=== PATIENT | male | born 1970 | race Caucasian/White ===

== ENCOUNTER 2018-01-15 19:09 | Emergency (ER) | payer OTHER ==
[2018-01-15 19:18] VITALS: BP 177/101
--- NOTE | 2018-01-15 19:23 | UC ---
Respiratory Complaint HPI - HPI Summary HPI Summary: 47 yo male presents with dry cough and body aches. He tells me that 10 days ago he developed a sore throat and went to [address] [place] [address] on 01/06 and was dx'd with strep. He was placed on Augmentin for 10 days and is on day 8 of that. He reports significant improvement of his sore throat, but over the last 2-3 days has developed a dry cough and body aches. He and his are concerned that he has the flu and are requesting a flu swab. He has been taking mucinex in addition to his augmentin. Denies fever, chills, SOB, chest pain, abdominal pain , n/v, or rash. - History of Current Complaint Chief Complaint: UCRespiratory Stated Complaint: COUGH,BODY ACHES Time Seen by Provider: 01/15/18 19:22 Hx Obtained From: Patient Onset/Duration: Gradual Onset Severity Initially: Moderate Severity Currently: Moderate Pain Intensity: 6 Pain Scale Used: 0-10 Numeric - Allergies/Home Medications Allergies/Adverse Reactions: Allergies Allergy/AdvReac Type Severity Reaction Status Date / Time azithromycin Allergy Nausea And Verified 01/15/18 19:19 Vomiting Home Medications: Home Medications Antibiotic ? Name 1 tab PO BID 01/15/18 [History] PMH/Surg Hx/FS Hx/Imm Hx - Additional Past Medical History Additional PMH: None Previously Healthy: Yes - Surgical History Surgical History: None - Family History Known Family History: Positive: None - Social History Occupation: Employed Full-time Lives: With Family Alcohol Use: Occasionally Substance Use Type: None Smoking Status (MU): Never Smoked Tobacco Review of Systems Constitutional: Other - Body aches Skin: Negative Eyes: Negative ENT: Negative Respiratory: Cough Cardiovascular: Negative Gastrointestinal: Negative Musculoskeletal: Negative Neurological: Negative Psychological: Negative All Other Systems Reviewed And Are Negative: Yes Physical Exam - Summary Physical Exam Summary: GENERAL: NAD. WDWN. No pain distress. SKIN: No rashes, sores, lesions, or open wounds. HEENT: Head: AT/NC Eyes: EOM intact. Conjunctiva clear without inflammation or discharge. Ears: Hearing grossly normal. TMs intact, no bulging, erythema, or edema. Nose: Nasal mucosa pink and moist. NTTP maxillary and frontal sinus. Throat: Posterior oropharynx without exudates, erythema, or tonsillar enlargement. Uvula midline. NECK: Supple. Nontender. No lymphadenopathy. CHEST: CTAB. No wheezing. No accessory muscle use. Breathing comfortably and in no distress. CV: RRR. Without m/r/g. Pulses intact. Brisk cap refill. NEURO: Alert. CN II-XII grossly intact. PSYCH: Age appropriate behavior. Triage Information Reviewed: Yes Vital Signs: Initial Vital Signs Temp 98.6 F 01/15/18 19:15 Pulse 70 01/15/18 19:15 Resp 18 01/15/18 19:15 BP 177/101 01/15/18 19:15 Pulse Ox 98 01/15/18 19:15 Laboratory Tests 01/15/18 19:36 Influenza A (Rapid) Negative Influenza B (Rapid) Negative Vital Signs Reviewed: Yes UC Diagnostic Evaluation - Laboratory O2 Sat by Pulse Oximetry: 98 Respiratory Course/Dx - Course Course Of Treatment: Repeat BP 158/92. POC flu negative. CXR: IMPRESSION: NO EVIDENCE FOR ACTIVE CARDIOPULMONARY DISEASE. Suspect viral illness. Advised to take tylenol/ibuprofen for fevers or discomfort. Rest and drink clear fluids. Complete his course of augmentin - Differential Dx/Diagnosis Provider Diagnoses: Viral syndrome Discharge - Sign-Out/Discharge Documenting (check all that apply): Patient Departure - Discharge Plan Condition: Stable Disposition: HOME Prescriptions: Benzonatate CAP* [Tessalon 100 MG CAP*] 100 mg PO TID PRN #15 cap PRN Reason: Cough predniSONE TAB* [Deltasone 20 MG TAB*] 40 mg PO DAILY #9 tab Patient Education Materials: Viral Syndrome (ED) Referrals: Wagner Lynch NP [Primary Care Provider] - Additional Instructions: If you develop a fever, shortness of breath, chest pain, new or worsening symptoms - please call your PCP or go to the ED. Your blood pressure was high at todays visit. Please see your primary provider within 4 weeks for recheck and re-evaluation. Per institutional requirements, I have reviewed the chart, however, I was not consulted specifically or made aware of this patient by the above midlevel provider. I did not personally evaluate, interact with , or disposition this patient. - Billing Disposition and Condition Condition: STABLE Disposition: Home
--- NOTE | 2018-01-15 19:55 | RAD ---
INDICATION: Cough and fever. COMPARISON: There are no prior studies available for comparison. TECHNIQUE: Dual-energy PA and lateral views of the chest were obtained. FINDINGS: The heart is within normal limits in size. Mediastinal and hilar contours appear within normal limits. The lungs are clear. No pleural effusion is present. IMPRESSION: NO EVIDENCE FOR ACTIVE CARDIOPULMONARY DISEASE.
== END 2018-01-15 20:15 | disposition home or self-care (01) ==
LOC: UCEAST 19:09
DX: B34.9 Viral infection, unspecified (principal); Z88.1 Allergy status to other antibiotic agents
CPT/HCPCS: 71046; 99202; G0463

== ENCOUNTER 2018-06-16 11:04 | Emergency (ER) | payer OTHER ==
--- NOTE | 2018-06-16 11:20 | UC ---
Respiratory Complaint HPI - HPI Summary HPI Summary: 47 y/o male presents to the urgent care c/o nasal congestion w/ green nasal discharge, sinus pain, +PND and a dry cough for the past 9 days. Pt reports his has similar symptoms. Ordonez and sinus pain is 6/10. He has been taking OTC medications w/o any improvement. Pt stated mild dry cough, but a lot of green PND. Pt denies visual disturbances, dizziness, SOB, chest pain, abdominal pain, N/V/D - History of Current Complaint Chief Complaint: UCRespiratory Stated Complaint: SINUS ISSUE Time Seen by Provider: 06/16/18 11:19 Hx Obtained From: Patient Onset/Duration: Gradual Onset, Lasting Days - 9 days, Still Present, Worse Since - 2 days Timing: Constant Severity Initially: Mild Severity Currently: Moderate Pain Intensity: 6 Pain Scale Used: 0-10 Numeric Character: Cough: Nonproductive Aggravating Factors: Recumbent Position Alleviating Factors: OTC Meds Associated Signs And Symptoms: Positive: URI, Nasal Congestion, Sinus Discomfort. Negative: Fever - at the beining of symptoms, Wheezing - Risk Factors Pulmonary Embolism Risk Factors: Negative Cardiac Risk Factors: Negative Pseudomonas Risk Factors: Negative Tuberculosis Risk Factors: Negative - Allergies/Home Medications Allergies/Adverse Reactions: Allergies Allergy/AdvReac Type Severity Reaction Status Date / Time azithromycin Allergy Nausea And Verified 06/16/18 11:15 Vomiting PMH/Surg Hx/FS Hx/Imm Hx Previously Healthy: Yes - Pt denies PMHX - Surgical History Surgical History: None - Family History Known Family History: Positive: Cardiac Disease, Hypertension - Social History Occupation: Employed Full-time Lives: With Family Alcohol Use: Occasionally Substance Use Type: None Smoking Status (MU): Never Smoked Tobacco Review of Systems All Other Systems Reviewed And Are Negative: Yes Constitutional: Positive: Negative Skin: Positive: Negative Eyes: Positive: Negative ENT: Positive: Ear Ache - B/L ear pressure, Nasal Discharge - green, Sinus Congestion, Sinus Pain/Tenderness, Other - PND + Respiratory: Positive: Cough - dry Cardiovascular: Positive: Negative Gastrointestinal: Positive: Negative Genitourinary: Positive: Negative Motor: Positive: Negative Neurovascular: Positive: Negative Musculoskeletal: Positive: Negative Neurological: Positive: Headache Psychological: Positive: Negative Is Patient Immunocompromised?: No Physical Exam - Summary Physical Exam Summary: Vitals: reviewed General: Well developed, well-nourished male patient with NAD. Head and face: Normocephalic and atraumatic, Positive tenderness over the frontal and maxillary sinuses.. Eyes: PERRLA, EOMI x 2. Normal conjunctiva. No eye discharge. fundus clear, no photophobia ENT: Ears and TM with normal limits. Nose: edematous and erythematous nasal mucosa with with yellowish discharge and erythematous mucosa. Pharynx with erythema, no exudate. green PND Neck: Supple, no JVD, no carotid bruits and no lymphadenopathy. Lungs: clear, no rales, no rhonchi, no wheezes. CVS: RRR, S1 and S2 present no murmurs or gallops appreciated. Abdomen: soft nontender with positive bowel sounds. Extremities: no edema noted. Neuro: WNL. Skin: warm and dry Triage Information Reviewed: Yes Vital Signs: Initial Vital Signs Temp 99.4 F 06/16/18 11:12 Pulse 87 06/16/18 11:12 Resp 17 06/16/18 11:12 BP 167/109 06/16/18 11:12 Pulse Ox 98 06/16/18 11:12 Diagnostic Evaluation - Laboratory O2 Sat by Pulse Oximetry: 98 Respiratory Course/Dx - Course Course Of Treatment: 47 y/o male presents to the urgent care c/o nasal congestion w/ green nasal discharge, sinus pain, +PND and a dry cough for the past 9 days. Pt reports his has similar symptoms. Ordonez and sinus pain is 6/ 10. He has been taking OTC medications w/o any improvement. Pt stated mild dry cough, but a lot of green PND. Pt denies visual disturbances, dizziness, SOB, chest pain, abdominal pain, N/V/D. Hx obtained. Pt w/ acute bacterial sinusitis on examination. Pt is hemodynamically stable. Manual BP retaking 152/102. Pt educated of HTN and advised to decrease salt in his diet and monitor BP and f/u w/ his PCP in 3 days for further management. Pt Rx Augmentin PO and Flonase nasal spray for his sinusitis. D/C instructions explained. Pt understood and agreed w/ plan of care. Pt left clinic ambulating and hemodynamically stable. - Differential Dx/Diagnosis Differential Diagnosis/HQI/PQRI: Bronchitis, Influenza, Laryngitis, Lower Resp Infection, Sinusitis Provider Diagnosis: Acute bacterial sinusitis, Elevated BP without diagnosis of hypertension Discharge - Sign-Out/Discharge Documenting (check all that apply): Patient Departure - D/c home All imaging exams completed and their final reports reviewed: No Studies - Discharge Plan Condition: Stable Disposition: HOME Prescriptions: Amoxicillin/Clavulanate TAB* [Augmentin TAB 875*] 875 mg PO BID #20 tab Fluticasone NASAL SPRAY 50MCG* [Flonase NASAL SPRAY 50MCG*] 2 spray BOTH NARES DAILY #1 btl Patient Education Materials: Sinusitis (ED), Low-Sodium Diet (ED) Forms: *Work Release Referrals: Wagner Lynch NP [Primary Care Provider] - 3 Days Additional Instructions: 1- Please increase fluid intake and rest. take full course of antibiotic to avoid resistance. Take yogurts w/ Probiotics or Culturelle to protect your GI system 2-Use Flonase as directed to help drain fluid. Also buy saline drops to clear sinuses 3-Take Ibuprofen/Tylenol PO q6-8hrs after meals to alleviate headache 4-Return to the clinic or PCP in 3 days if symptoms do not improve for further management and treatment 5- Your BP is very elevated today. please decrease salt in your diet, monitor BP and if it continues to be elevated please f/u with your PCP 3 days for further management. However if you develop visual disturbances, dizziness, SOB, chest pain, N/V please go immediately to the ER for further management - Billing Disposition and Condition Condition: STABLE Disposition: Home
[2018-06-16 11:45] VITALS: BP 152/102
== END 2018-06-16 11:55 | disposition home or self-care (01) ==
LOC: UCEAST 11:04
DX: J01.90 Acute sinusitis, unspecified (principal); B96.89 Other specified bacterial agents as the cause of diseases classified elsewhere; R03.0 Elevated blood-pressure reading, without diagnosis of hypertension; Z88.1 Allergy status to other antibiotic agents
CPT/HCPCS: 99212; G0463

== ENCOUNTER 2018-08-29 17:33 | Emergency (ER) | payer OTHER ==
--- NOTE | 2018-08-29 17:48 | UC ---
General HPI - HPI Summary HPI Summary: 47 yo male presents with generalized fatigue. He tells me that he was seen at the about 3 months ago and told his BP was elevated and to f/u with his PCP. He tried to schedule an appointment, but had some insurance issues and was never able to see them. He tells me that he tried to eat better and drink more water and he felt better overall. 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 He reports experiencing fatigue and has a general lack of energy over this time period. Today he was at [facility] and checked his BP and noted it to still be elevated (160s/110). He called his PCP and they recommended he come to urgent care. He does not smoke. Drinks alcohol occasionally. Denies PMHx. Family hx positive for father [place] last year. He denies fever, SOB, chest pain ( although has had intermittent chest "discomfort" over the last 3 months), abdominal pain, n/v/d/c, dysuria, increased thirst or urination. He also tells me that about 2 weeks ago in the process of moving - he jammed his right pinky finger. Is still mildly swollen and bruised today. He feels it is deformed. Concerned about a fracture here. He has not seen a primary doctor or had any labwork in over 2-3 years - History of Current Complaint Chief Complaint: UCCardiac Stated Complaint: FEVER Time Seen by Provider: 08/29/18 17:48 Hx Obtained From: Patient Onset/Duration: Gradual Onset Current Severity: None Pain Intensity: 0 - Allergy/Home Medications Allergies/Adverse Reactions: Allergies Allergy/AdvReac Type Severity Reaction Status Date / Time azithromycin Allergy Nausea And Verified 08/29/18 17:44 Vomiting PMH/Surg Hx/FS Hx/Imm Hx - Additional Past Medical History Additional PMH: None - Surgical History Surgical History: Yes Surgery Procedure, Year, and Place: left knee - Family History Known Family History: Positive: Cardiac Disease, Hypertension - Social History Occupation: Employed Full-time Lives: With Family Alcohol Use: Rare Substance Use Type: None Smoking Status (MU): Never Smoked Tobacco Review of Systems All Other Systems Reviewed And Are Negative: Yes Constitutional: Positive: Fatigue Skin: Positive: Negative Eyes: Positive: Negative ENT: Positive: Negative Respiratory: Positive: Negative Cardiovascular: Positive: Negative Gastrointestinal: Positive: Negative Genitourinary: Positive: Negative Neurovascular: Positive: Negative Neurological: Positive: Negative Psychological: Positive: Negative Physical Exam - Summary Physical Exam Summary: GENERAL: NAD. WDWN. No pain distress. SKIN: No rashes, sores, lesions, or open wounds. HEENT: Head: AT/NC Eyes: EOM intact. Conjunctiva clear without inflammation or discharge. Ears: Hearing grossly normal. TMs intact, no bulging, erythema, or edema. Nose: Nasal mucosa pink and moist. NTTP maxillary and frontal sinus. Throat: Posterior oropharynx without exudates, erythema, or tonsillar enlargement. Uvula midline. NECK: Supple. Nontender. No lymphadenopathy. CHEST: CTAB. No r/r/w. No accessory muscle use. Breathing comfortably and in no distress. CV: RRR. Without m/r/g. Pulses intact. Cap refill <2seconds ABDOMEN: Soft. NTTP. No distention or guarding. No CVA tenderness. Bowel sounds present MSK: Right hand: 5th digit with mild ecchymosis and edema at MCP and proximal phalanx. FROM without pain. When fully extended appears slightly ulnar deviated. NEURO: Alert. PSYCH: Age appropriate behavior. Triage Information Reviewed: Yes Vital Signs: Initial Vital Signs Temp 98.3 F 08/29/18 17:38 Pulse 72 08/29/18 17:38 Resp 18 08/29/18 17:38 BP 163/103 08/29/18 17:38 Pulse Ox 96 08/29/18 17:38 Laboratory Tests 08/29/18 08/29/18 08/29/18 17:57 18:10 18:22 POC Glucose (mg/dL) 179 H POC Urine Color Yellow POC Urine Clarity Clear POC Urine pH 5.5 POC Ur Specif [place] >= 1.030 POC Urine Protein 2+ A POC Ur Glucose (UA) Negative POC Urine Ketones Negative POC Urine Blood Trace-intact A POC Urine Nitrite Negative POC Urine Bilirubin Negative POC Urine Urobilinogen 0.2 POC U Leukocyte Esteras Negative Influenza A (Rapid) Negative Influenza B (Rapid) Negative Vital Signs Reviewed: Yes Course/Dx - Course Course Of Treatment: EKG 73bpm NSR with LVH. No ST changes as read by Dr. Medeiros. POC glucose 179. POC flu negative. UA negative. XR hand: No radiologist reading after 1800, therefore wet read by myself is negative for acute fracture. I do not see evidence of a recent fracture or signs of recent fracture healing. I suspect this is a contusion and advised to continue monitoring the area and to apply ice. Given his symptoms and findings today, there is a concern that he may be diabetic - however he did eat just prior to arrival and his glucose was tested about 1.5 hours after this meal. His BP continues to be high today - he has not had multiple documented visits of elevated BP. Given his elevated BS and his HTN , will start him with Lisinopril 10mg daily today and draw for CBC, CMP, TSH, and A1C. Discussed the above with pt and strongly advised that he f/u with his PCP within 1 week for BP check and to go over lab results for further evaluation and treatment. If he develops SOB, chest pain, dizziness, headache, weakness, or lightheadedness to go to the ED. He voiced understanding and is in agreement with the plan. - Diagnoses Provider Diagnosis: HTN (hypertension), Fatigue, Elevated blood sugar, Contusion of right hand Discharge - Sign-Out/Discharge Documenting (check all that apply): Patient Departure All imaging exams completed and their final reports reviewed: Yes - Discharge Plan Condition: Stable Disposition: HOME Prescriptions: Lisinopril TAB* [Prinivil TAB 10 MG*] 10 mg PO BEDTIME #30 tab Patient Education Materials: Hypertension (ED), Nondiabetic Hyperglycemia (ED) Referrals: Wagner Lynch NP [Primary Care Provider] - As Soon As Possible Additional Instructions: If you develop a fever, shortness of breath, chest pain, new or worsening symptoms - please call your PCP or go to the ED. 1) Please start taking the lisinopril once a day at bedtime 2) Please schedule an appointment with your Primary doctor as soon as possible ( preferably within 1 week) for a recheck and to go over your lab results - Billing Disposition and Condition Condition: STABLE Disposition: Home
[2018-08-29 17:53] VITALS: BP 162/102
[2018-08-29 18:09] LABS: Influenza A Molecular NEGATIVE (Negative); Influenza B Molecular NEGATIVE (Negative)
[2018-08-30 10:37] LABS: ABS Basophils 0.1 10^3/ul (0-0.2); ABS Eosinophils 0.2 10^3/ul (0-0.6); ABS Lymphocytes 1.4 10^3/ul (1.0-4.8); ABS Monocytes 0.4 10^3/ul (0-0.8); ABS Neutrophils 3.9 10^3/ul (1.5-7.7); ABS Nucleated RBC 0 10^3/ul; Eosinophil % 3.9 %; Hematocrit 44 % (36-46); Hemoglobin 14.9 g/dL (14.0-18.0); Lymphocyte % 23.8 %; Mean Corpuscular HGB Conc 34 g/dL (31-36); Mean Corpuscular Hemoglobin 30 pg (27-31); Mean Corpuscular Volume 89 fL (80-94); Mean Platelet Volume 10.6 fL (7.4-10.4); Nucleated Red Blood Cells % 0; Platelet Count 183 10^3/uL (150-450); Red Blood Count 4.96 10^6 /uL (4.18-5.48); Red Cell Distribution Width 14 % (10.5-15)
[2018-08-30 10:40] LABS: Albumin 4.7 g/dL (3.2-5.2); Calcium 9.6 mg/dL (8.6-10.3); Potassium 4.6 mmol/L (3.5-5.0); Total Bilirubin 0.5 mg/dL (0.2-1.0)
[2018-08-30 10:46] LABS: BUN/Creatinine Ratio 13.5 (8-20); EGFR African American 93.4 (>60); EGFR Non-African American 77.2 (>60); Globulin 2.4 g/dL (2-4); Total Protein 7.1 g/dL (6.4-8.9)
[2018-08-30 11:29] LABS: TSH (Thyroid Stimulating Horm) 48.57 mcIU/mL (0.34-5.60)
--- NOTE | 2018-08-30 11:40 | UC ---
- Progress Note Progress Note: HGA1C elevated at 6.7 (Greater than 6.5% indicates diabetes) TSH 48.57 (hypothyroid) Labwork otherwise normal. The above findings are likely the cause of his fatigue and general feeling unwell. Attempted to call pt to discuss lab results and insure he has f/u with his PCP - no answer, but left a message to call us back. I called his PCP (W[facility]) and pt has not been seen there in over 5 years and therefore has been deactivated in their system and they are not taking new patients. Will give him a referral/number to the [facility] [phone] and number to Ann Herrera when he calls back. - Results/Orders Results/Orders: Laboratory Tests 08/29/18 08/29/18 08/29/18 17:57 18:10 18:22 WBC RBC Hgb Hct MCV MCH MCHC RDW Plt Count MPV Neut % (Auto) Lymph % (Auto) [place] % (Auto) Eos % (Auto) Baso % (Auto) Absolute Neuts (auto) Absolute Lymphs (auto) Absolute Monos (auto) Absolute Eos (auto) Absolute Basos (auto) Absolute Nucleated RBC Nucleated RBC % Sodium Potassium Chloride Carbon Dioxide Anion Gap BUN Creatinine Est GFR ( Amer) Est GFR (Non-Af Amer) BUN/Creatinine Ratio Glucose POC Glucose (mg/dL) 179 H Hemoglobin A1c Calcium Total Bilirubin AST ALT Alkaline Phosphatase Total Protein Albumin Globulin Albumin/Globulin Ratio TSH POC Urine Color Yellow POC Urine Clarity Clear POC Urine pH 5.5 POC Ur Specif [place] >= 1.030 POC Urine Protein 2+ A POC Ur Glucose (UA) Negative POC Urine Ketones Negative POC Urine Blood Trace-intact A POC Urine Nitrite Negative POC Urine Bilirubin Negative POC Urine Urobilinogen 0.2 POC U Leukocyte Esteras Negative Influenza A (Rapid) Negative Influenza B (Rapid) Negative 08/29/18 08/29/18 08/29/18 18:30 18:30 18:30 WBC 6.0 RBC 4.96 Hgb 14.9 Hct 44 MCV 89 MCH 30 MCHC 34 RDW 14 Plt Count 183 MPV 10.6 H Neut % (Auto) 65.0 Lymph % (Auto) 23.8 [place] % (Auto) 5.9 Eos % (Auto) 3.9 Baso % (Auto) 1.4 Absolute Neuts (auto) 3.9 Absolute Lymphs (auto) 1.4 Absolute Monos (auto) 0.4 Absolute Eos (auto) 0.2 Absolute Basos (auto) 0.1 Absolute Nucleated RBC 0 Nucleated RBC % 0 Sodium 137 Potassium 4.6 Chloride 101 Carbon Dioxide 27 Anion Gap 9 BUN 14 Creatinine 1.04 Est GFR ( Amer) 93.4 Est GFR (Non-Af Amer) 77.2 BUN/Creatinine Ratio 13.5 Glucose 206 H POC Glucose (mg/dL) Hemoglobin A1c 6.7 H Calcium 9.6 Total Bilirubin 0.50 AST 34 ALT 45 Alkaline Phosphatase 50 Total Protein 7.1 Albumin 4.7 Globulin 2.4 Albumin/Globulin Ratio 2.0 TSH 48.57 H POC Urine Color POC Urine Clarity POC Urine pH POC Ur Specif [place] POC Urine Protein POC Ur Glucose (UA) POC Urine Ketones POC Urine Blood POC Urine Nitrite POC Urine Bilirubin POC Urine Urobilinogen POC U Leukocyte Esteras Influenza A (Rapid) Influenza B (Rapid) Course/Dx - Diagnoses Provider Diagnoses: HTN (hypertension), Fatigue, Elevated blood sugar, Contusion of right hand Discharge - Sign-Out/Discharge Documenting (check all that apply): Post-Discharge Follow Up All imaging exams completed and their final reports reviewed: Yes - Discharge Plan Condition: Stable Disposition: HOME Prescriptions: Lisinopril TAB* [Prinivil TAB 10 MG*] 10 mg PO BEDTIME #30 tab Patient Education Materials: Hypertension (ED), Nondiabetic Hyperglycemia (ED) Referrals: Wagner Lynch NP [Primary Care Provider] - As Soon As Possible Additional Instructions: If you develop a fever, shortness of breath, chest pain, new or worsening symptoms - please call your PCP or go to the ED. 1) Please start taking the lisinopril once a day at bedtime 2) Please schedule an appointment with your Primary doctor as soon as possible ( preferably within 1 week) for a recheck and to go over your lab results - Billing Disposition and Condition Condition: STABLE Disposition: Home
== END 2018-08-29 18:50 | disposition home or self-care (01) ==
LOC: UCEAST 17:33
DX: S60.221A Contusion of right hand, initial encounter (principal); I10 Essential (primary) hypertension; R03.0 Elevated blood-pressure reading, without diagnosis of hypertension; Z88.1 Allergy status to other antibiotic agents; X58.XXXA Exposure to other specified factors, initial encounter; Y92.9 Unspecified place or not applicable
CPT/HCPCS: 36415; 80053; 81003; 83036; 84443; 85025; 99212; G0463

== ENCOUNTER 2019-02-16 07:48 | Emergency (ER) | payer OTHER ==
[2019-02-16 07:58] VITALS: BP 136/84
--- NOTE | 2019-02-16 08:14 | UC ---
Throat Pain/Nasal Azael HPI - HPI Summary HPI Summary: 48-year-old male comes in with a chief complaint of upper respiratory tract infection symptoms for one week. His rhinorrhea is yellow. Has been using over -the-counter medications with some relief. This morning he woke up with sore throat. Also the shower coughed up a lot of phlegm and sputum. Chloraseptic [place] did decrease the sore throat pain. No fevers or chills no history of asthma. He does feel fatigued. Not a smoker. He is a diabetic. - History of Current Complaint Chief Complaint: UCGeneralIllness Stated Complaint: CONGESTED Time Seen by Provider: 02/16/19 07:57 Pain Intensity: 0 - Allergies/Home Medications Allergies/Adverse Reactions: Allergies Allergy/AdvReac Type Severity Reaction Status Date / Time azithromycin AdvReac Nausea And Verified 02/16/19 07:58 Vomiting Home Medications: Home Medications Acetaminophen/Dextromethorphan [Daytime Cold & Cough Liquid] 02/16/19 [History] Dm/Acetaminophen/Doxylamine [Nighttime Cold and Flu Liquid] 02/16/19 [History] Levothyroxine TAB* [Synthroid 125 MCG TAB*] 1 dose PO DAILY 02/16/19 [History Confirmed 02/16/19] Pheniramine/P-Eph/Acetaminophn [Theraflu Flu & Sore Throat] 02/16/19 [History] Simvastatin TAB(NF) [Zocor 10 MG (NF)] 02/16/19 [History] metFORMIN* [Glucophage 1000 MG TAB *] 02/16/19 [History] PMH/Surg Hx/FS Hx/Imm Hx Previously Healthy: Yes Endocrine History: Diabetes, Hypothyroidism, Dyslipidemia Cardiovascular History: Hypertension - Surgical History Surgical History: Yes Surgery Procedure, Year, and Place: left knee - Family History Known Family History: Positive: None, Cardiac Disease, Hypertension - Social History Alcohol Use: Occasionally Substance Use Type: Marijuana Smoking Status (MU): Never Smoked Tobacco Review of Systems All Other Systems Reviewed And Are Negative: Yes Constitutional: Positive: Fatigue Skin: Positive: Negative Eyes: Positive: Negative ENT: Positive: Sore Throat, Ear Ache, Nasal Discharge, Sinus Congestion, Sinus Pain/Tenderness Respiratory: Positive: Negative Cardiovascular: Positive: Negative Gastrointestinal: Positive: Negative Motor: Positive: Negative Neurovascular: Positive: Negative Musculoskeletal: Positive: Negative Neurological: Positive: Negative Psychological: Positive: Negative Is Patient Immunocompromised?: No Physical Exam Triage Information Reviewed: Yes Appearance: Well-Appearing, No Pain Distress, Well-Nourished Vital Signs: Initial Vital Signs Temp 97.2 F 02/16/19 07:54 Pulse 69 02/16/19 07:54 Resp 16 02/16/19 07:54 BP 136/84 02/16/19 07:54 Pulse Ox 98 02/16/19 07:54 Vital Signs Reviewed: Yes Eye Exam: Normal Eyes: Positive: Conjunctiva Clear ENT: Positive: Pharyngeal erythema, Nasal congestion, Nasal drainage, TMs normal Neck: Positive: Supple Respiratory: Positive: Lungs clear, Normal breath sounds, No respiratory distress Cardiovascular: Positive: RRR Musculoskeletal: Positive: Strength Intact, ROM Intact Neurological: Positive: Alert Psychological: Positive: Age Appropriate Behavior Skin Exam: Normal Throat Pain/Nasal Course/Dx - Course Course Of Treatment: DISCUSSED VIRAL VERSES BACTERIAL INFECTION AND THE ROLE OF ANTIBIOTICS. THE PATIENT PREFERS TO BE ON ANTIBIOTICS AT THIS TIME. - Differential Dx/Diagnosis Provider Diagnosis: Sinusitis Discharge ED - Sign-Out/Discharge Documenting (check all that apply): Patient Departure All imaging exams completed and their final reports reviewed: No Studies - Discharge Plan Condition: Stable Disposition: HOME Prescriptions: Amoxicillin/Clavulanate TAB* [Augmentin TAB 875*] 875 mg PO BID #20 tab Patient Education Materials: Sinusitis (ED) Referrals: Kai Leblanc DO [Primary Care Provider] - Additional Instructions: FOLLOW UP WITH YOUR DOCTOR IF NOT COMPLETELY IMPROVED. GET RECHECKED SOONER IF YOUR CONDITION WORSENS OR ANY QUESTIONS OR CONCERNS. - Billing Disposition and Condition Condition: STABLE Disposition: Home
== END 2019-02-16 08:20 | disposition home or self-care (01) ==
LOC: UCEAST 07:48
DX: J32.9 Chronic sinusitis, unspecified (principal); E11.9 Type 2 diabetes mellitus without complications; E03.9 Hypothyroidism, unspecified; E78.5 Hyperlipidemia, unspecified; I10 Essential (primary) hypertension
CPT/HCPCS: 99212; G0463